=== PATIENT | female | born 1965 | race Caucasian/White ===

== ENCOUNTER 2017-01-27 20:41 | Emergency (ER) | payer MEDICARE ==
[~2017-01-27] VITALS: Ht 165.1 cm; Wt 84.0 kg
[2017-01-27 21:47] LABS: HEMATOCRIT 39.7 % (36.0-46.0); MCH 29.3 PG (29.0-34.0); MCV 88.8 FL (83-99); MEAN PLAT.VOLUME 10.2 uM^3 (9.5-12.4); PLATELET COUNT 250 K/uL (156-360); RBC DIS.WIDTH-CV 13.2 % (11.8-14.6); RBC DIS.WIDTH-SD 42.9 % (39-53); RED BLOOD COUNT 4.47 M/uL (3.80-5.20); WHITE BLOOD COUNT 7.8 K/uL (4.1-10.2)
[2017-01-27 22:08] LABS: CHLORIDE 104 mEq/L (99-109); SODIUM 141 mEq/L (136-147)
[2017-01-27 22:09] LABS: GLUCOSE 94 mg/dL (70-99)
[2017-01-27 22:11] LABS: ANION GAP 13 MEQ/L (2-14)
[2017-01-27 22:13] LABS: GFR ESTIMATE (CALCULATED) > 59 mL/min/
[2017-01-27 22:14] LABS: UREA NITROGEN (BUN) 11 mg/dL (9-23)
[2017-01-27 22:15] LABS: POTASSIUM 3.4 mEq/L (3.7-5.4)
[2017-01-27 22:17] LABS: TROP-I INTERPRETATION NEGATIVE; TROPONIN-I < 0.01 ng/mL (0.0-0.30)
[2017-01-27 22:55] VITALS: BP 140/81
== END 2017-01-27 22:56 | disposition home or self-care (01) ==
LOC: EXP 20:41 → EME 20:41 → EXP 22:56
PROVIDERS: Physician Assistant
DX: R07.9 Chest pain, unspecified (principal); R06.02 Shortness of breath
CPT/HCPCS: 71275; 80048; 84484; 85027; 93005; 99281; 99284